=== PATIENT | male | born 1930 | race Caucasian/White ===

== ENCOUNTER 2016-11-13 08:35 | Observation (INO) | payer BC ==
--- NOTE | ~2016-11-13 | HP ---
Unit #: [id number] #: [id number] Patient: VEGA AL [id number] [address] [place], [place] [address] [id number] E MR#: [id number] NAME: VEGA AL ROOM: Age: 86 Sex: M Admission Date: 11/13/2016 : 1930 Attending Physician: Cecy Hernandez M.D. Primary Care Physician: Eran Pollock D.O. HISTORY AND PHYSICAL CHIEF COMPLAINT Confusion. HISTORY OF PRESENT ILLNESS The patient is an 83-year-old male with a history of hypertension, degenerative disc disease, gastroesophageal reflux disease and skin cancer, brought to the emergency room with worsening confusion. The patient is a poor historian and the history is obtained by speaking to the patient's family at the bedside. The patient usually remains confused but now he is more confused than his baseline. The patient also has a strong odor to the urine and with the suspected UTI. The patient was found to have a hyponatremia with the sodium of 131 and creatinine 1.5 and the UA is negative for infection and he is being admitted for the above reasons. The patient denies any fever, chest pain, nausea, vomiting, complains of the back pain. PAST MEDICAL HISTORY History of hypertension, skin cancer, GERD and degenerative disc disease. PAST SURGICAL HISTORY Cholecystectomy, numerous skin cancer excisions. ALLERGIES No known drug allergies. HOME MEDICATIONS Patient is on Valsartan, Imiquimod, lansoprazole, loperamide, Lopressor, tramadol, Tylenol Extra Strength. REVIEW OF SYMPTOMS Fourteen-point review of symptoms performed and only pertinent positive findings described above, remaining are negative. FAMILY HISTORY Reviewed and none. SOCIAL HISTORY Patient smoked three packs of cigarettes per day for approximately 25 years and stopped smoking many years ago, denies alcohol or any illicit drug abuse. PHYSICAL EXAMINATION GENERAL APPEARANCE: On examination the patient is lying on a bed not in Unit #: [id number] #: [id number] Patient: VEGA AL acute distress. VITAL SIGNS: Temperature 98.5, pulse 89, respiratory rate 16, blood pressure 171/98, sating 93% at room air. HEENT: Head atraumatic and normocephalic. Pupils equal, round and reacting to light and accommodation. Extraocular movements are intact. Dry mucous membrane. NECK: Supple. LUNGS: Decreased air entry at the bases. HEART: Regular rate and rhythm. ABDOMEN: Soft. Positive bowel sounds. EXTREMITIES: No cyanosis. No clubbing. Flaking of the skin at the lower extremities. NEUROLOGIC: Awake, alert, oriented and confused. DIAGNOSTIC STUDIES LABORATORY DATA: Troponin less than 0.05, WBC 5.4, hemoglobin 12.4, hematocrit 38.5, platelet is 169. UA shows negative leukocyte esterase, negative nitrite. Sodium 131, potassium 4.5, chloride 99, bicarb 26, glucose 102, BUN 14, creatinine 1.5, calcium 8.2, BNP 43, lactic acid 0.9, troponin less than 0.05. CARDIOVASCULAR: The EKG shows normal sinus rhythm with sinus arrhythmia at 75 beats per minute. ASSESSMENT 1. Acute kidney injury. 2. Hyponatremia. 3. Confusion. PLAN Plan to admit the patient to the observation with the telemetry. Continue with the IV fluids, normal saline at 75 mL per hour. Check the urine toxicology and check the chest x-ray and will hold the narcotics and repeat the labs again in the morning and further recommendations will follow. Dictated by Sathish Gatica/doris TD: 11/13/2016 19:06 JOB #: [id number] HISTORY AND PHYSICAL Page 1 of 1 X LETI SCHULER MD X HISTORY AND PHYSICAL
--- NOTE | ~2016-11-13 | CR72 ---
[facility] A Service of [facility] RADIOLOGY TEXT RESULTS PATIENT: VEGA AL LOCATION: [place] [address] : 32 UNIT #: [id number] AGE: [address]: Rachele Dietrich MD SEX: M ORDER DR: [id number] [place] [id number] [facility]. [place], [place] [address] [id number] I MR#: [id number] Acc #: [id number] NAME: VEGA AL. : 1930 SEX: M STUDY DATE/TIME: 11/13/2016 18:39 UNIT: [facility] ROOM: 84517 STUDY DESCRIPTION: CR Chest Single View Portable Attending Physician: Rachele Dietrich M.D. Ordering Physician: Ed Jm Sorensen M.D. Primary Care Physician: Eran Pollock D.O. MEDICAL IMAGING REPORT This report is preliminary unless electronic signature is present EXAM Portable AP view of the chest. COMPARISON November 13, 2016 at 12:00 p.m. and April 28, 2011 at 2:15 p.m. INDICATIONS 86-year-old male with dyspnea with activity and generalized weakness as well as altered mental status for 2 days. FINDINGS There is poor inspiratory effort. No evidence of pneumothorax or significant pleural effusion. There is crowding of central bronchovascular structures with grossly stable left basilar opacity favoring minimal atelectasis. Spondylosis of the thoracic spine. IMPRESSION Poor inspiratory effort resulting in bronchovascular crowding. There are slightly asymmetric opacities in the left lung base which appears stable from earlier today, most likely representing atelectasis. Clinical correlation to exclude signs of pneumonia are recommended. Dictated by... Denton De La Rosa M.D. THIS IS AN ELECTRONICALLY VERIFIED REPORT Denton De La Rosa M.D. at 11/14/2016 2:24 PM CAROLA/vanesa TD: 11/14/2016 05:58 JOB #: [id number] [facility] A Service [facility] RADIOLOGY TEXT RESULTS PATIENT: VEGA AL [id number] UNIT #: [id number] AGE: [address]: Rachele Dietrich MD SEX: M ORDER DR: MEDICAL IMAGING REPORT Page 1 of 1 COPY
--- NOTE | ~2016-11-13 | CR63 ---
[facility] A Service of [facility] RADIOLOGY TEXT RESULTS PATIENT: VEGA AL LOCATION: [facility] 555[address]01 : 32 UNIT #: [id number] AGE: [address]: Rachele Dietrich MD SEX: M ORDER DR: [id number] [facility] [address] [facility]. [place], [place] [address] [id number] I MR#: [id number] Acc #: [id number] NAME: VEGA AL : 1930 SEX: M STUDY DATE/TIME: 11/14/2016 13:32 UNIT: [facility] ROOM: [facility] STUDY DESCRIPTION: CR Chest 2 View Attending Physician: Rachele Dietrich M.D. Ordering Physician: Rachele Dietrich M.D. Primary Care Physician: Eran Pollock D.O. MEDICAL IMAGING REPORT This report is preliminary unless electronic signature is present EXAM Chest, PA and lateral; 11/14/2016. HISTORY Shortness breath on exertion, generalized weakness for 3 days. FINDINGS There is mild cardiac enlargement. There is poor inspiratory result with bibasilar atelectasis. The lungs are otherwise clear. There are no pleural effusions. IMPRESSION Mild cardiac enlargement. No active pulmonary disease. Dictated by... Stanton Gloria M.D. THIS IS AN ELECTRONICALLY VERIFIED REPORT Stanton Gloria M.D. at 11/15/2016 2:13 PM Lisa TD: 11/14/2016 23:24 JOB #: [id number] MEDICAL IMAGING REPORT Page 1 of 1 COPY
--- NOTE | ~2016-11-13 | EKG ---
PATIENT: VEGA AL UNIT #: [id number] Ventricular Rate: 75 BPM Atrial Rate: 75 BPM P-R Interval: 160 ms QRS Duration: 78 ms Q-T Interval: 366 ms QTC Calculation(Bezet): 408 ms P Radiant: 19 degrees Calculated R Radiant: -21 degrees Calculated T Radiant: 23 degrees Diagnosis Line: Normal sinus rhythm with sinus arrhythmia Diagnosis Line: Normal ECG Diagnosis Line: When compared with ECG of 29-APR-2011 06:01, Diagnosis Line: No significant change was found Diagnosis Line: Confirmed by YEN LEE MD ([id number]) on 11/18/2016 Diagnosis Line: 2:34:33 PM INTERPRETING MD: JESUS SARGENT
--- NOTE | ~2016-11-13 | DS ---
Unit #: [id number] #: [id number] Patient: VEGA AL [id number] [address] [address] [id number] I MR#: [id number] NAME: VEGA AL. ROOM: 555 Age: 86 Sex: M Admission Date: 11/13/2016 : 1930 Discharge Date: Attending Physician: Rachele Dietrich M.D. Primary Care Physician: Eran Pollock D.O. DISCHARGE SUMMARY DISCHARGE DIAGNOSES 1. Sepsis, source unclear. 2. Staphylococcus species coagulase negative bacteremia, skin contamination. 3. Toxic metabolic encephalopathy. 4. Acute kidney injury. 5. Hypertension, uncontrolled. 6. Skin cancer, needing regular treatment. 7. Gastroesophageal reflux disease. 8. Degenerative disk disease. CONSULTATION None. PROCEDURE None. DIAGNOSTIC STUDIES LABORATORY: Influenza A and B negative. Creatinine 1.1. WBC 5, hemoglobin 10.9. Blood cultures show Staphylococcus coagulase negative skin contamination. Lactic acid 1. Urinalysis negative. IMAGING: CT of the head negative. Chest x-ray negative. ALLERGIES None. DISCHARGE MEDICATIONS 1. Zyclara 2.5% topical apply daily. 2. Tylenol extra strength arthritis one tablet daily. 3. Loperamide 2 mg p.o. three times daily p.r.n. diarrhea. 4. Juanita 60 mg p.o. daily. 5. Lopressor 25 p.o. b.i.d. 6. Diovan 250 mg p.o. daily. 7. Rapaflo 8 mg p.o. daily. 8. Augmentin 875 p.o. b.i.d. for five days. 9. Norvasc 5 mg p.o. b.i.d. HOSPITALIZATION COURSE An 86 year old admitted because of change in mental status. Fever with sepsis: No source found, less likely central nervous system Unit #: [id number] #: [id number] Patient: VEGA AL infection, currently back to baseline according to family. He will be discharged to rehab because he is physically weak since few weeks. Toxic metabolic encephalopathy: Likely from medication. Tramadol has been discontinued. Acute kidney injury: Received IV fluids, currently stable. Hypertension: Uncontrolled. Norvasc added. DISPOSITION Discharge to rehab. FOLLOWUP Follow with PCP in one week time upon discharge. Discussed with , okay for him to go to rehab. Discharge time taken is 31 minutes. Dictated by... Sathish Dodd/tatiana TD: 11/16/2016 16:03 JOB #: [id number] DISCHARGE SUMMARY Page 1 of 1 X Rachele Dietrich MD X DISCHARGE SUMMARY
--- NOTE | ~2016-11-13 | CT71 ---
[facility] A Service [facility] RADIOLOGY TEXT RESULTS PATIENT: VEGA AL LOCATION: [place] [address] : 32 UNIT #: [id number] AGE: [address]: Rachele Dietrich MD SEX: M ORDER DR: [id number] [place] [id number]. [place], [place] [address] [id number] I MR#: [id number] Acc #: [id number] NAME: VEGA AL. : 1930 SEX: M STUDY DATE/TIME: 11/13/2016 16:59 UNIT: [facility] ROOM: 71424 STUDY DESCRIPTION: CT Head Wo Contrast Attending Physician: Wilfrid Alexandre M.D. Ordering Physician: Cecy Hernandez M.D. Primary Care Physician: Eran Pollock D.O. MEDICAL IMAGING REPORT This report is preliminary unless electronic signature is present EXAM Head CT, no contrast. DATE OF STUDY 11/13/2016 PROCEDURE Axial unenhanced head CT. This CT exam was performed with one or more of the following radiation dose reduction techniques: automatic exposure control, adjustment of mA and/or kV according to patient size, and iterative reconstruction. HISTORY Confusion for two days and difficulty concentrating. COMPARISON Most recent prior head CT dated 04/28/2011. FINDINGS There is mild motion degradation, but the skull base and calvaria are, otherwise, unremarkable. There is cerebral volume loss and extensive chronic white matter change, nonspecific but likely reflecting chronic small vessel disease. The extracranial soft tissues are normal. The skull base a and calvaria are normal. IMPRESSION Chronic small vessel change and volume loss, no acute intracranial abnormality. Findings show general progression since the head CT of 04/28/2011. [facility] A Service [facility] RADIOLOGY TEXT RESULTS PATIENT: VEGA AL LOCATION: [facility] 555- : 32 UNIT #: [id number] AGE: [address]: Rachele Dietrich MD SEX: M ORDER DR: Dictated by... Faizan Elias M.D. THIS IS AN ELECTRONICALLY VERIFIED REPORT Faizan Elias M.D. at 11/16/2016 10:57 AM AUTUMN/marisol TD: 11/14/2016 01:38 JOB #: [id number] MEDICAL IMAGING REPORT Page 1 of 1 COPY
--- NOTE | ~2016-11-13 | CR72 ---
[facility] A Service of [facility] RADIOLOGY TEXT RESULTS PATIENT: VEGA AL LOCATION: [facility] [address] : 32 UNIT #: [id number] AGE: [address]: Rachele Dietrich MD SEX: M ORDER DR: [id number] [facility] [address] [facility]. [place], [place] [address] [id number] E MR#: [id number] Acc #: [id number] NAME: VEGA AL. : 1930 SEX: M STUDY DATE/TIME: 11/13/2016 12:00 UNIT: [facility] ROOM: STUDY DESCRIPTION: CR Chest Single View Portable Attending Physician: Cecy Hernandez M.D. Ordering Physician: Cecy Hernandez M.D. Primary Care Physician: Eran Pollock D.O. MEDICAL IMAGING REPORT This report is preliminary unless electronic signature is present EXAM Portable chest. HISTORY Weakness and shortness of breath onset today. TECHNIQUE Single view of the chest was obtained and compared to 04/28/2011. FINDINGS A tortuous aorta is again seen accompanied by cardiomegaly. The inspiratory effort is shallow. No focal infiltrates are seen. The vascular pattern is normal. No pleural fluid. IMPRESSION Shallow inspiratory effort. Cardiomegaly. No new infiltrates are seen since the previous exam. Dictated by... Eran Jackson M.D. THIS IS AN ELECTRONICALLY VERIFIED REPORT Eran Jackson M.D. at 11/18/2016 4:52 PM PREETI/marisol TD: 11/13/2016 17:49 JOB #: [id number] MEDICAL IMAGING REPORT Page 1 of 1 COPY
[~2016-11-13 08:35] MED LIST: ASPIRIN PO; ASPIRIN81 M1 PO; ASPIRIN81 M2 PO; BLOOD PRESSURE PILL; DIOVAN PO; DIOVAN320 MG PO; FLAX SEED OIL1000 MG PO; FLAXSEED OIL1000 M1 PO; INDOMETHACIN75 MG PO; LEVAQUIN PO; METOPROLOL TAR25 MG PO; MULTI-VITAMIN1 TAB PO; RANITIDINE HCL150 M1 PO; TEKTURNA150 MG PO; TOPROL XL PO; TYLENOL325 M1 PO; VOLTAREN75 MG PO; ZANTAC PO
[2016-11-13 11:37] LABS: POC - CKMB 1.5 ng/mL (0.0-7.9); POC - TROPONIN <0.05 ng/mL (<=0.05)
[2016-11-13 11:59] LABS: BASOPHIL% 0.2 % (0-2.5); EOSINOPHIL% 0.3 % (0.0-7.0); HEMATOCRIT 38.5 % (38.0-50.0); HEMOGLOBIN 12.4 gm/dL (13.0-16.0); LYMPHOCYTE# 1.3 X10e3 (1.0-3.5); LYMPHOCYTE% 23.8 % (17.0-45.0); MEAN CELL VOLUME 94.9 FL (83-96); MEAN CORPUSCULAR HEMOGLOBIN 30.5 PG (28-34); MEAN CORPUSCULAR HGB CONC 32.1 g/dL (30-36); MEAN PLATELET VOLUME 8.2 FL (6.5-11.5); MONOCYTE# 0.8 X10e3 (0-1.0); MONOCYTE% 14.3 % (3.0-12.0); NEUTROPHIL# 3.3 X10e3 (1.5-7.1); NEUTROPHIL% 61.4 % (40-75); PLATELET COUNT 169 X10e3 (140-420); RED BLOOD COUNT 4.06 X10e (3.90-5.60); RED CELL DISTRIBUTION WIDTH 13.7 % (11.0-15.5); WHITE BLOOD COUNT 5.4 X10e3 (4.0-10.5)
[2016-11-13 12:08] LABS: URINE SOURCE CLEAN CATCH
[2016-11-13 12:09] LABS: DIFF IND NO
[2016-11-13 12:12] LABS: URINE APPEARANCE CLEAR; URINE BILIRUBIN NEG (NEG); URINE BLOOD NEG (NEG); URINE COLOR YELLOW; URINE GLUCOSE NEG (NEG); URINE KETONE NEG (NEG); URINE LEUKOCYTE ESTERASE NEG (NEG); URINE NITRATE NEG (NEG); URINE PH 5.5 (5-8); URINE PROTEIN NEG (NEG); URINE SPECIFIC GRAVITY 1.016 (1.003-1.035); URINE UROBILINOGEN 0.2 MG/DL (NEG)
[2016-11-13 12:16] LABS: CULTURE INDICATED? NO
[2016-11-13 12:26] LABS: ALBUMIN SERUM 3.6 g/dL (3.5-5.0); BILIRUBIN,TOTAL 0.3 mg/dL (0.2-2.0); BUN/CREATININE RATIO 9.33; CALCIUM SERUM 8.2 mg/dL (8.4-10.2); CREATININE SERUM 1.5 mg/dL (0.6-1.4); GLOM FILT RATE Estimated 42.2 mL/min (>60); POTASSIUM 4.5 mmol/L (3.5-5.1); PROTEIN TOTAL SERUM 7.9 g/dL (6.0-8.3)
[2016-11-13] MEDS ORDERED: ANTI-DIARRHEAL2 M1 PO (13:12)
[2016-11-13] MEDS ORDERED: DIOVAN PO (13:12)
[2016-11-13] MEDS ORDERED: DEXILANT60 MG PO (13:14)
[2016-11-13] MEDS ORDERED: ZYCLARA7.5 G1 TOP (13:14)
[2016-11-13] MEDS ORDERED: ALLERGY RELIEF60 MG PO (13:14)
[2016-11-13] MEDS ORDERED: LOPERAMIDE HCL2 M1 PO (13:14)
[2016-11-13] MEDS ORDERED: LOPRESSOR PO (13:15)
[2016-11-13] MEDS ORDERED: TRAMADOL HCL50 M1 PO (13:15)
[2016-11-13] MEDS ORDERED: RAPAFLO8 MG PO (13:15)
[2016-11-13] MEDS ORDERED: TYLENOL EXTRA500 M1 PO (13:46)
[2016-11-13 15:59] LABS: POC - CKMB 2.8 ng/mL (0.0-7.9); POC - TROPONIN <0.05 ng/mL (<=0.05)
[2016-11-14 07:44] LABS: BASOPHIL% 0.3 % (0-2.5); EOSINOPHIL% 0.3 % (0.0-7.0); HEMOGLOBIN 11.8 gm/dL (13.0-16.0); LYMPHOCYTE# 1.4 X10e3 (1.0-3.5); LYMPHOCYTE% 28.5 % (17.0-45.0); MEAN CELL VOLUME 94.9 FL (83-96); MEAN CORPUSCULAR HEMOGLOBIN 30.3 PG (28-34); MEAN CORPUSCULAR HGB CONC 31.9 g/dL (30-36); MEAN PLATELET VOLUME 8.3 FL (6.5-11.5); MONOCYTE# 0.6 X10e3 (0-1.0); MONOCYTE% 11.7 % (3.0-12.0); NEUTROPHIL# 2.8 X10e3 (1.5-7.1); NEUTROPHIL% 59.2 % (40-75); PLATELET COUNT 151 X10e3 (140-420); RED CELL DISTRIBUTION WIDTH 13.7 % (11.0-15.5); WHITE BLOOD COUNT 4.8 X10e3 (4.0-10.5)
[2016-11-14 07:49] LABS: DIFF IND NO
[2016-11-14 08:20] LABS: CALCIUM SERUM 7.9 mg/dL (8.4-10.2); CREATININE SERUM 1.1 mg/dL (0.6-1.4); GLOM FILT RATE Estimated 61.3 mL/min (>60); POTASSIUM 3.8 mmol/L (3.5-5.1)
[2016-11-15 06:41] LABS: HEMATOCRIT 34.9 % (38.0-50.0); HEMOGLOBIN 11.1 gm/dL (13.0-16.0); MEAN CELL VOLUME 95.5 FL (83-96); MEAN CORPUSCULAR HEMOGLOBIN 30.4 PG (28-34); MEAN CORPUSCULAR HGB CONC 31.8 g/dL (30-36); MEAN PLATELET VOLUME 8.2 FL (6.5-11.5); RED BLOOD COUNT 3.65 X10e (3.90-5.60); RED CELL DISTRIBUTION WIDTH 13.8 % (11.0-15.5); WHITE BLOOD COUNT 4.6 X10e3 (4.0-10.5)
[2016-11-15 07:07] LABS: ALBUMIN SERUM 2.9 g/dL (3.5-5.0); BILIRUBIN,TOTAL 0.5 mg/dL (0.2-2.0); BUN/CREATININE RATIO 8.46; CALCIUM SERUM 7.8 mg/dL (8.4-10.2); CREATININE SERUM 1.3 mg/dL (0.6-1.4); GLOM FILT RATE Estimated 50.1 mL/min (>60); POTASSIUM 3.8 mmol/L (3.5-5.1); PROTEIN TOTAL SERUM 6.6 g/dL (6.0-8.3)
[2016-11-16 06:18] LABS: HEMATOCRIT 33.7 % (38.0-50.0); HEMOGLOBIN 10.9 gm/dL (13.0-16.0); MEAN CELL VOLUME 93.8 FL (83-96); MEAN CORPUSCULAR HEMOGLOBIN 30.3 PG (28-34); MEAN CORPUSCULAR HGB CONC 32.3 g/dL (30-36); MEAN PLATELET VOLUME 8.1 FL (6.5-11.5); RED BLOOD COUNT 3.59 X10e (3.90-5.60); RED CELL DISTRIBUTION WIDTH 13.7 % (11.0-15.5)
[2016-11-16 06:40] LABS: BUN/CREATININE RATIO 8.18; CALCIUM SERUM 7.9 mg/dL (8.4-10.2); CREATININE SERUM 1.1 mg/dL (0.6-1.4); GLOM FILT RATE Estimated 61.3 mL/min (>60); POTASSIUM 3.7 mmol/L (3.5-5.1)
[2016-11-16 11:38] LABS: INFLUENZA A NEG (NEG); INFLUENZA B NEG (NEG)
== END 2016-11-17 14:02 | DRG 871 ==
LOC: CED 08:35 → C5B 17:54 → CEDOF 17:54 → CED 18:15 → CEDOF 18:15 → C5B 11-14 09:33
PROVIDERS: Emergency Medicine; Internal Medicine
DX: A41.9 Sepsis, unspecified organism (principal); R78.81 Bacteremia; G92 Toxic encephalopathy; N17.9 Acute kidney failure, unspecified; I10 Essential (primary) hypertension; C44.90 Unspecified malignant neoplasm of skin, unspecified; E87.1 Hypo-osmolality and hyponatremia; K21.9 Gastro-esophageal reflux disease without esophagitis; Z87.891 Personal history of nicotine dependence; I51.7 Cardiomegaly
CPT/HCPCS: 36415; 51702; 70450; 71010; 71020; 80048; 80053; 81003; 82553; 82947; 83605; 83735; 83880; 84484; 85025; 85027; 87040; 87804; 93005; 94640; 94760; 96365; 96366; 96367; 96372; 96375; 96376; 97163; 97166; 97530; 97535; 99285; G0378; G8978-GP; G8979-GP; G8987-GO; G8988-GO; J0456; J0696; J1650; J3370